=== PATIENT | male | born 1975 | race Caucasian/White ===

== ENCOUNTER 2021-12-16 20:37 | Emergency (ER) | payer OTHER ==
[~2021-12-16] VITALS: Ht 167.6 cm; Wt 97.7 kg
[2021-12-16 20:40] VITALS: BP 145/84
== END 2021-12-16 23:23 | disposition left against medical advice (07) ==
LOC: EMS 20:39
DX: Z53.21 Procedure and treatment not carried out due to patient leaving prior to being seen by health care provider (principal)